=== PATIENT | female | born 1995 | race Caucasian/White ===

== ENCOUNTER 2019-04-14 12:17 | Emergency (ER) | payer SELFPAY ==
[~2019-04-14] VITALS: Ht 162.6 cm; Wt 56.9 kg
[2019-04-14 12:26] VITALS: BP 108/74; PULSE 72; RESP 16; Ht 162.6 cm; Wt 56.9 kg
== END 2019-04-14 13:20 | disposition left against medical advice (07) ==
LOC: FTE 12:17
DX: Z53.21 Procedure and treatment not carried out due to patient leaving prior to being seen by health care provider (principal)